=== PATIENT | male | born 1945 | race Caucasian/White ===

== ENCOUNTER 2017-04-17 11:24 | Outpatient (CLI) | payer MEDICARE, OTHER ==
[2017-04-17 18:54] LABS: HEMOGLOBIN A1C 0.97 g/dL
[2017-04-17 18:56] LABS: BUN - BLOOD UREA NITROGEN 14 mg/dL (6-20); CALCIUM 9.4 mg/dL (8.5-10.3); CARBON DIOXIDE - CO2 26 mmol/L (21-32); CHLORIDE 103 mmol/L (101-111); CHOL/HDL RATIO 4.1 (<5.0); CHOLESTEROL 202 mg/dL; GFR - MDRD 73 (>89); GLUCOSE 126 mg/dL (70-100); HDL CHOLESTEROL 49 mg/dL; LDL/HDL RATIO 2.8 (<3.6); SODIUM 138 mmol/L (135-145); TRIGLYCERIDES 89 mg/dL; VLDL CHOLESTEROL 18 mg/dL
== END 2017-04-17 11:25 | disposition home or self-care (01) ==
LOC: LAB.F 11:24
PROVIDERS: ATTEND Nurse Practitioner Family
DX: I10 Essential (primary) hypertension (principal); E11.9 Type 2 diabetes mellitus without complications; E78.5 Hyperlipidemia, unspecified; E03.9 Hypothyroidism, unspecified
CPT/HCPCS: 36415; 80048; 80061; 82043; 83036; 84443

== ENCOUNTER 2017-07-15 13:52 | Outpatient (CLI) | payer MEDICARE, OTHER ==
[2017-07-15 19:54] LABS: HEMOGLOBIN A1C 1.16 g/dL
== END 2017-07-15 13:53 | disposition home or self-care (01) ==
LOC: LAB.F 13:52
PROVIDERS: ATTEND Nurse Practitioner Family
DX: E78.5 Hyperlipidemia, unspecified (principal); E11.9 Type 2 diabetes mellitus without complications
CPT/HCPCS: 36415; 83036

== ENCOUNTER 2017-10-14 08:00 | Outpatient (CLI) | payer MEDICARE, OTHER ==
[2017-10-14 17:49] LABS: HB2 TOTAL 17.4 g/dL; HEMOGLOBIN A1C 0.95 g/dL; HEMOGLOBIN A1C % 7.1 % (4.6-6.2)
[2017-10-14 17:53] LABS: BUN - BLOOD UREA NITROGEN 11 mg/dL (6-20); CALCIUM 9.5 mg/dL (8.5-10.3); CARBON DIOXIDE - CO2 26 mmol/L (21-32); CHLORIDE 104 mmol/L (101-111); CHOL/HDL RATIO 2.1 (<5.0); CHOLESTEROL 94 mg/dL; CREATININE 0.9 mg/dL (0.6-1.2); GFR - MDRD 83 (>89); GLUCOSE 131 mg/dL (70-100); HDL CHOLESTEROL 45 mg/dL; LDL CHOLESTEROL,CALCULATED 32 mg/dL; LDL/HDL RATIO 0.7 (<3.6); SODIUM 137 mmol/L (135-145); VLDL CHOLESTEROL 17 mg/dL
== END 2017-10-14 08:01 | disposition home or self-care (01) ==
LOC: LAB.F 08:00
PROVIDERS: ATTEND Nurse Practitioner Family
DX: E11.9 Type 2 diabetes mellitus without complications (principal); E78.5 Hyperlipidemia, unspecified; I10 Essential (primary) hypertension
CPT/HCPCS: 36415; 80048; 80061; 83036

== ENCOUNTER 2018-01-20 10:41 | Outpatient (CLI) | payer MEDICARE, OTHER ==
[2018-01-20 18:35] LABS: BUN - BLOOD UREA NITROGEN 13 mg/dL (6-20); CALCIUM 9.2 mg/dL (8.5-10.3); CARBON DIOXIDE - CO2 25 mmol/L (21-32); CHLORIDE 103 mmol/L (101-111); CHOLESTEROL 195 mg/dL; CREATININE 0.8 mg/dL (0.6-1.2); GFR - MDRD 95 (>89); GLUCOSE 160 mg/dL (70-100); HDL CHOLESTEROL 39 mg/dL; LDL CHOLESTEROL,CALCULATED 119 mg/dL; LDL/HDL RATIO 3.1 (<3.6); SODIUM 136 mmol/L (135-145); VLDL CHOLESTEROL 37 mg/dL
[2018-01-20 19:23] LABS: HB2 TOTAL 16.7 g/dL; HEMOGLOBIN A1C 0.86 g/dL; HEMOGLOBIN A1C % 6.9 % (4.6-6.2)
== END 2018-01-20 10:42 | disposition home or self-care (01) ==
LOC: LAB.F 10:41
PROVIDERS: ATTEND Nurse Practitioner Family
DX: I10 Essential (primary) hypertension (principal); E11.9 Type 2 diabetes mellitus without complications; K76.0 Fatty (change of) liver, not elsewhere classified; E78.5 Hyperlipidemia, unspecified
CPT/HCPCS: 36415; 80048; 80061; 83036; 83721

== ENCOUNTER 2018-05-12 17:33 | Emergency (ER) | payer MEDICARE, OTHER ==
[2018-05-12 17:42] VITALS: BP 196/106
[2018-05-12] MEDS ORDERED: BUFFERED LIDOCAINE 10 ML SYRINGE ONE (17:43)
--- NOTE | 2018-05-12 17:44 | ED Physician Documentation ---
PD HPI HEENT - Stated complaint Stated Complaint: LT EAR PX - Chief complaint Chief Complaint: Heent - History obtained from History obtained from: Patient - History of Present Illness Timing - onset: Other (3 days of painful swelling just behind the left ear without fevers or chills.) Review of Systems Constitutional: denies: Fever, Chills Ears: reports: Ear pain. denies: Loss of hearing, Drainage/discharge Nose: denies: Rhinorrhea / runny nose, Congestion PD PAST MEDICAL HISTORY - Present Medications Home Medications: Ambulatory Orders Medication Instructions Recorded Confirmed Amox/Clav 875/125 [Augmentin] 1 each PO Q12H #14 tablet 05/12/18 - Allergies Allergies/Adverse Reactions: Allergies Allergy/AdvReac Type Severity Reaction Status Date / Time No Known Drug Allergies Allergy Verified 05/12/18 17:42 PD ED PE NORMAL - Vitals Vital signs reviewed: Yes - General General: Alert and oriented X 3, No acute distress - HEENT HEENT: Other (Just posterior to the inferior part of the left ear there is a pointed cyst or abscess with overlying cellulitis. It is about nickel sized.) - Neck Neck: Supple, no meningeal sign, No bony TTP - Neuro Neuro: Alert and oriented X 3, Normal speech - Psych Psych: Normal mood, Normal affect Results - Vitals Vitals: Vital Signs - 24 hr 05/12/18 17:35 Temperature 36.6 C Heart Rate 73 Respiratory 18 Rate Blood Pressure 196/106 H O2 Saturation 97 Oxygen O2 Source Room air Procedures - Abscess I&D (location) Left ear Preparation: Chlorhexadine, Lidocaine 1% Incision: Incised with scalpel, Purulent drainage (with sebum), Loculations broken, Culture obtained. No: Packed (too small) Other: Pt tolerated well, Dressing applied, Antibiotic prescribed PD MEDICAL DECISION MAKING - Sepsis Event Vital Signs: Vital Signs - 24 hr 05/12/18 17:35 Temperature 36.6 C Heart Rate 73 Respiratory 18 Rate Blood Pressure 196/106 H O2 Saturation 97 Oxygen O2 Source Room air Departure - Departure Disposition: 01 Home, Self Care Clinical Impression: Sebaceous cyst of ear Condition: Good Record reviewed to determine appropriate education?: Yes Instructions: ED Cyst Sebaceous Infec IandD Prescriptions: Amox/Clav 875/125 [Augmentin] 1 each PO Q12H #14 tablet Comments: We are performing a wound culture, the results should be done in 48-72 hours. If antibiotic change is necessary we will call you. Return if worse in the meantime, especially if you develop increased pain, fevers, cannot keep down the medication. Otherwise follow-up with your physician in approximately 2-3 days. Your blood pressure was elevated today on check into the emergency department. This does not mean that you have hypertension, it is a common phenomenon to come to the emergency department and have elevated blood pressure. I recommend that you see your primary care physician within the week to have it rechecked when you are feeling better. Discharge Date/Time: 05/12/18 18:10
[2018-05-12] MEDS ORDERED: AMOX/CLAV 875 MG/125 MG TABLET PO STA (18:03)
== END 2018-05-12 18:10 | disposition home or self-care (01) ==
LOC: ED 17:33
DX: L72.3 Sebaceous cyst (principal); R03.0 Elevated blood-pressure reading, without diagnosis of hypertension
CPT/HCPCS: 10060; 87070; 87205; 99283; A9270

== ENCOUNTER 2018-07-20 09:40 | Outpatient (CLI) | payer MEDICARE, OTHER ==
[2018-07-20 18:06] LABS: HB2 TOTAL 16.7 g/dL; HEMOGLOBIN A1C 0.94 g/dL; HEMOGLOBIN A1C % 7.3 % (4.6-6.2)
[2018-07-20 18:12] LABS: CHOL/HDL RATIO 4.3 (<5.0); CHOLESTEROL 206 mg/dL; HDL CHOLESTEROL 48 mg/dL; LDL CHOLESTEROL,CALCULATED 124 mg/dL; LDL/HDL RATIO 2.6 (<3.6); VLDL CHOLESTEROL 34 mg/dL
== END 2018-07-20 09:41 | disposition home or self-care (01) ==
LOC: LAB.F 09:40
PROVIDERS: ATTEND Internal Medicine
DX: E11.9 Type 2 diabetes mellitus without complications (principal)
CPT/HCPCS: 36415; 80061; 82043; 83036; 83721; 84443

== ENCOUNTER 2019-01-20 11:10 | Outpatient (CLI) | payer MEDICARE, OTHER ==
[2019-01-20 18:06] LABS: ALBUMIN 4.3 g/dL (3.2-5.5); ALBUMIN/GLOBULIN RATIO 1.3 (1.0-2.2); ALKALINE PHOSPHATASE 69 IU/L (42-121); ALT ALANINE AMINOTRANSFERASE 56 IU/L (10-60); AST ASPARTATE AMINOTRANSFERASE 55 IU/L (10-42); BILIRUBIN,TOTAL 0.9 mg/dL (0.2-1.0); BUN - BLOOD UREA NITROGEN 17 mg/dL (6-20); CALCIUM 9.6 mg/dL (8.5-10.3); CARBON DIOXIDE - CO2 26 mmol/L (21-32); CHLORIDE 102 mmol/L (101-111); CHOL/HDL RATIO 4.7 (<5.0); CHOLESTEROL 197 mg/dL; CREATININE 0.8 mg/dL (0.6-1.2); GFR - MDRD 94 (>89); GLUCOSE 164 mg/dL (70-100); HDL CHOLESTEROL 42 mg/dL; LDL CHOLESTEROL,CALCULATED 122 mg/dL; LDL/HDL RATIO 2.9 (<3.6); SODIUM 139 mmol/L (135-145); TOTAL PROTEIN 7.7 g/dL (6.7-8.2); VLDL CHOLESTEROL 33 mg/dL
[2019-01-20 18:25] LABS: HB2 TOTAL 16.1 g/dL; HEMOGLOBIN A1C 1.15 g/dL; HEMOGLOBIN A1C % 8.7 % (4.6-6.2)
[2019-01-20 19:06] LABS: CREATININE,URINE 108.5 mg/dL; MICROALBUM/CREATININE RATIO,UR 25.8 ug/mg (<30.0); MICROALBUMIN,URINE 2.8 mg/dL (0-300.0)
== END 2019-01-20 11:11 | disposition home or self-care (01) ==
LOC: LAB.F 11:10
PROVIDERS: ATTEND Internal Medicine
DX: E78.5 Hyperlipidemia, unspecified (principal); E11.9 Type 2 diabetes mellitus without complications; E03.9 Hypothyroidism, unspecified
CPT/HCPCS: 36415; 80053; 80061; 82043; 82570; 83036; 83721; 84443

== ENCOUNTER 2019-04-14 11:15 | Outpatient (CLI) | payer MEDICARE, OTHER ==
[2019-04-14 17:32] LABS: HB2 TOTAL 16.4 g/dL; HEMOGLOBIN A1C 1.01 g/dL; HEMOGLOBIN A1C % 7.8 % (4.6-6.2)
[2019-04-14 17:43] LABS: ALBUMIN 4.3 g/dL (3.2-5.5); ALBUMIN/GLOBULIN RATIO 1.3 (1.0-2.2); ALKALINE PHOSPHATASE 64 IU/L (42-121); ALT ALANINE AMINOTRANSFERASE 67 IU/L (10-60); AST ASPARTATE AMINOTRANSFERASE 57 IU/L (10-42); BILIRUBIN,TOTAL 0.9 mg/dL (0.2-1.0); BUN - BLOOD UREA NITROGEN 14 mg/dL (6-20); CALCIUM 9.5 mg/dL (8.5-10.3); CARBON DIOXIDE - CO2 24 mmol/L (21-32); CHLORIDE 104 mmol/L (101-111); CHOL/HDL RATIO 5.6 (<5.0); CHOLESTEROL 213 mg/dL; CREATININE 0.8 mg/dL (0.6-1.2); GFR - MDRD 94 (>89); GLUCOSE 148 mg/dL (70-100); HDL CHOLESTEROL 38 mg/dL; LDL CHOLESTEROL,CALCULATED 128 mg/dL; LDL/HDL RATIO 3.4 (<3.6); SODIUM 139 mmol/L (135-145); TOTAL PROTEIN 7.5 g/dL (6.7-8.2); VLDL CHOLESTEROL 47 mg/dL
[2019-04-14 17:48] LABS: CREATININE,URINE 264.3 mg/dL; MICROALBUM/CREATININE RATIO,UR 31.8 ug/mg (<30.0); MICROALBUMIN,URINE 8.4 mg/dL (0-300.0)
== END 2019-04-14 11:16 | disposition home or self-care (01) ==
LOC: LAB.S 11:15
PROVIDERS: ATTEND Internal Medicine
DX: E78.5 Hyperlipidemia, unspecified (principal); E11.9 Type 2 diabetes mellitus without complications
CPT/HCPCS: 36415; 80053; 80061; 82043; 82570; 83036; 83721

== ENCOUNTER 2019-11-04 06:05 | Day surgery (SDC) | payer MEDICARE, OTHER ==
[2019-11-04] MEDS ORDERED: MIDAZOLAM 2 MG/2 ML VIAL IVP ONE (06:06)
[2019-11-04] MEDS ORDERED: LACTATED RINGERS 500 ML IV ONE (06:16)
[2019-11-04] MEDS ORDERED: CYCLOPENTOLATE 1% OPHTH DROPS 2 ML ONE ×2 (06:21→06:22)
[2019-11-04] MEDS ORDERED: KETOROLAC 0.45% OPHTH DROPS ONE ×2 (06:21→06:22)
[2019-11-04] MEDS ORDERED: PROPARACAINE 0.5% OPHTH DROPS 15 ML ONE ×2 (06:21→06:22)
[2019-11-04] MEDS ORDERED: PHENYLEPHRINE 2.5% OPHTH 2 ML DROPS ONE ×3 (06:21→06:22)
[2019-11-04] MEDS ORDERED: CYCLOPENTOLATE 1% OPHTH DROPS 2 ML RIGHTEYE ONE (06:40)
[2019-11-04] MEDS ORDERED: KETOROLAC 0.45% OPHTH DROPS RIGHTEYE ONE (06:40)
[2019-11-04] MEDS ORDERED: PROPARACAINE 0.5% OPHTH DROPS 15 ML RIGHTEYE ONE ×2 (06:40→07:21)
[2019-11-04] MEDS ORDERED: PHENYLEPHRINE 2.5% OPHTH 2 ML DROPS RIGHTEYE ONE (06:41)
[2019-11-04] MEDS ORDERED: BRIMONIDINE 0.2% OPHTH DROPS 5 ML ONE (06:56)
[2019-11-04] MEDS ORDERED: TRIAMCIN/MOXIFLOX OPHTHALMIC 0.6 ML VIAL IO ONE ×2 (06:56→07:32)
[2019-11-04] MEDS ORDERED: TIMOLOL 0.5% OPHTH DROPS ONE (06:56)
[2019-11-04] MEDS ORDERED: BSS/LIDOCAINE/EPINEPHRINE 1 ML SYRINGE ONE (06:56)
[2019-11-04] MEDS ORDERED: VANCOMYCIN OPHTHALMI 8MG/0.8ML 8 MG/0.8 ML SYRINGE IO ONE ×2 (06:57→07:33)
--- NOTE | 2019-11-04 07:10 | ANESTHESIA ---
Pre-Anesthesia VS, & Labs - Diagnosis right eye nuclear sclerotic cataract - Procedure cataract extraction with probable intraocular lens implant right eye Vital Signs: Temp Pulse Resp BP Pulse Ox 37.2 C 70 16 160/74 H 96 11/04/19 06:23 11/04/19 06:23 11/04/19 06:23 11/04/19 06:23 11/04/19 06:23 Height 5 ft 10 in Weight (kg) 96 kg Body Mass Index 30.4 - NPO >8 hours - Lab Results Current Lab Results: Laboratory Tests 11/04/19 06:36: POC Whole Bld Glucose 169 H Home Medications and Allergies Home Medications: Ambulatory Orders amLODIPine [Norvasc] 5 mg PO ONCE 11/03/19 diphenhydrAMINE [Benadryl] 25 mg PO PRN PRN 11/03/19 lisinopriL [Lisinopril] 20 mg PO DAILY 11/03/19 metFORMIN [Glucophage] 500 mg PO BID 11/03/19 amLODIPine [Norvasc] 5 mg PO ONCE 11/03/19 diphenhydrAMINE [Benadryl] 25 mg PO PRN PRN 11/03/19 lisinopriL [Lisinopril] 20 mg PO DAILY 11/03/19 metFORMIN [Glucophage] 500 mg PO BID 11/03/19 Allergies/Adverse Reactions: Allergies Allergy/AdvReac Type Severity Reaction Status Date / Time No Known Drug Allergies Allergy Verified 05/12/18 17:42 Anes History & Medical History - Anesthetic History Anesthesia Complications: reports: No previous complications - Medical History Cardiovascular: reports: Hypertension Pulmonary: reports: None Gastrointestinal: reports: None Urinary: reports: None Neuro: reports: None Musculoskeletal: reports: None Endocrine/Autoimmune: reports: Other ("pre-diabetic") Blood Disorders: reports: None Skin: reports: None Smoking Status: Former smoker (quit 20 years ago) Psychosocial: reports: No issues indicated - Surgical History Orthopedic: Hip replacement Exam General: Alert, Oriented x3, Cooperative, No acute distress Dental: WNL Mouth Openin Fingerbreadth Neck Mobility: Normal Mallampati classification: III Thyromental Distance: greater than 6 cm Respiratory: Lungs clear, Normal breath sounds, No respiratory distress, No accessory muscle use Cardiovascular: Regular rate, Normal S1, Normal S2, No murmurs Mental/Cognitive Status: Alert/Oriented X3, Normal for patient Plan Anesthesia Type: MAC Consent for Procedure(s) Verified and Reviewed: Yes Code Status: Attempt Resuscitation ASA classification: 2-Mild systemic disease Is this case an emergency?: No
[2019-11-04] MEDS ORDERED: BRIMONIDINE 0.2% OPHTH DROPS 5 ML OPTH ONE (07:30)
[2019-11-04] MEDS ORDERED: EPINEPHrine 1 MG/ML AMP IVP ONE (07:30)
[2019-11-04] MEDS ORDERED: TIMOLOL 0.5% OPHTH DROPS OPTH ONE (07:31)
[2019-11-04] MEDS ORDERED: BSS/LIDOCAINE/EPINEPHRINE 1 ML SYRINGE IO ONE (07:31)
[2019-11-04] MEDS ORDERED: CHONDR SULF/HYALURONATE SYRINGE IO ONE (07:31)
[2019-11-04 07:46] VITALS: BP 126/58
--- NOTE | 2019-11-04 07:58 | OPERATIVE REPORT ---
DATE OF SERVICE: 11/04/2019 Physician: Jacob Lazo MD PREOPERATIVE DIAGNOSIS: Visually significant cataract, right eye. This was his first cataract surge ry. POSTOPERATIVE DIAGNOSIS: Visually significant cataract, right eye. This was his first cataract surg deidra. DESCRIPTION OF PROCEDURE: Phacoemulsification with posterior chamber intraocular lens implant, right eye. SURGEON: Jacob Lazo MD ANESTHESIA: Monitored anesthesia care. COMPLICATIONS: None. OPERATIVE INDICATIONS: This is a 74-year-old man with progressive vision loss in the right eye due t o 2-3+ nuclear sclerotic cataract. Best corrected visual acuity was 20/40, with glare to 20/50 in th e right eye. Indications for surgery are overall decrease in vision, difficulty seeing words or clos ed caption or game scores on TV, difficulty driving at night because of headlights from other vehicle s, and difficulty with glare or bright lights in any situation. He was consented at length concernin g risks and benefits of cataract surgery, after which he expressed a desire to proceed with surgery. OPERATIVE PROCEDURE: Patient was taken to OR #3 and placed under monitored anesthesia care. Surgica l timeout was conducted confirming correct patient, correct procedure, and correct surgical site. He was given topical anesthesia, and prepped and draped in the usual sterile fashion. The eye was ente red at the 12 and 9 o'clock positions. Intracameral Shugarcaine was injected into the anterior chamb er, followed by Viscoat. A continuous-tear curvilinear capsulorrhexis was performed. The nucleus wa s hydrodissected and phacoemulsified. The cortex was evacuated using automated infusion and aspirati on. Provisc was injected in the capsular bag, and a 22.0 diopter intraocular lens inserted in the ba g. I and A was used to evacuate the viscoelastic materials. The eye was inflated to physiologic pre ssure using balanced salt solution and found to be watertight. Approximately 0.25 mL of a mixture of triamcinolone, moxifloxacin was injected transsclerally into the vitreous in the inferotemporal quad rant. An additional 0.55 mL of a mixture of triamcinolone, moxifloxacin and vancomycin was injected subconjunctivally in the superior quadrant for infection and inflammation prophylaxis. Wound integri ty was checked with Weck-Tricia sponges. Patient was taken from the operating room in good condition an d given postoperative instructions. TD: 11/04/2019 07:52
== END 2019-11-04 06:06 | disposition home or self-care (01) ==
LOC: SDS 06:05
PROVIDERS: ATTEND Ophthalmology
PROC: 08RJ3JZ Replacement of Right Lens with Synthetic Substitute, Percutaneous Approach (ICD-10-PCS; principal; 2019-11-04 07:30)
DX: E11.36 Type 2 diabetes mellitus with diabetic cataract (principal); H25.11 Age-related nuclear cataract, right eye; I10 Essential (primary) hypertension; Z87.891 Personal history of nicotine dependence; Z79.84 Long term (current) use of oral hypoglycemic drugs
CPT/HCPCS: 66984; A9270; J3490; V2632

== ENCOUNTER 2020-05-18 11:40 | Outpatient (CLI) | payer MEDICARE, OTHER | END 2020-05-18 23:59 | disposition home or self-care (01) | LOC: COV 11:40 | PROVIDERS: ATTEND Family Medicine | DX: R50.9 Fever, unspecified (principal); M79.10 Myalgia, unspecified site; R53.83 Other fatigue; R09.81 Nasal congestion; R11.2 Nausea with vomiting, unspecified; Z20.828 Contact with and (suspected) exposure to other viral communicable diseases ==

== ENCOUNTER 2020-05-24 07:00 | Outpatient (CLI) | payer MEDICARE, OTHER | END 2020-05-24 23:59 | disposition home or self-care (01) | LOC: LAB.R 07:00 | PROVIDERS: ATTEND Physician Assistant Medical | DX: R50.9 Fever, unspecified (principal); R35.0 Frequency of micturition | CPT/HCPCS: 87086 ==

== ENCOUNTER 2020-05-24 08:00 | Outpatient (CLI) | payer MEDICARE, OTHER ==
--- NOTE | 2020-05-24 18:28 | XRAY Report ---
PROCEDURE: Chest 2 View X-Ray INDICATIONS: FEVER WITH CHILLS TECHNIQUE: 2 view(s) of the chest. COMPARISON: None. FINDINGS: Surgical changes and devices: None. Lungs and pleura: No pleural effusions or pneumothorax. Lungs are clear. Mediastinum: Mediastinal contours are normal. Heart size is normal. Bones and chest wall: No suspicious bony abnormalities. Soft tissues appear unremarkable. IMPRESSION: No acute process. Reviewed by: Roxane Mendez MD on 05/24/2020 6:27 PM PDT Approved by: Roxane Mendez MD on 05/24/2020 6:27 PM PDT Station ID: [id number]
== END 2020-05-24 23:59 | disposition home or self-care (01) ==
LOC: DI.S 08:00
PROVIDERS: ATTEND Physician Assistant Medical
DX: R50.9 Fever, unspecified (principal); R35.0 Frequency of micturition; E11.9 Type 2 diabetes mellitus without complications; I10 Essential (primary) hypertension
CPT/HCPCS: 36415; 71046; 80053; 83036; 85025; 87086

== ENCOUNTER 2020-05-24 08:00 | Outpatient (CLI) | payer MEDICARE, OTHER ==
[2020-05-24 19:57] LABS: BASOPHILS # (AUTO) 0.1 10^3/uL (0.0-0.1); BASOPHILS % (AUTO) 0.6 %; EOSINOPHILS # (AUTO) 0.3 10^3/uL (0.0-0.7); EOSINOPHILS % (AUTO) 3.4 %; HGB - HEMOGLOBIN 14.5 g/dL (14.0-18.0); LYMPHOCYTES # (AUTO) 1.7 10^3/uL (1.5-3.5); LYMPHOCYTES % (AUTO) 17.5 %; MEAN CORPUSCULAR HGB CONC 33.7 g/dL (32.0-36.0); MEAN PLATELET VOLUME 9.3 fL (7.4-11.4); MONOCYTES # (AUTO) 0.5 10^3/uL (0.0-1.0); MONOCYTES % (AUTO) 5.6 %; NEUTROPHILS # (AUTO) 6.9 10^3/uL (1.5-6.6); NEUTROPHILS % (AUTO) 72.1 %; PLT - PLATELET COUNT 551 10^3/uL (130-450); WHITE BLOOD COUNT 9.5 x10^3/uL (4.8-10.8)
[2020-05-24 20:08] LABS: HEMOGLOBIN A1c% 6.9 % (4.27-6.07)
[2020-05-24 20:13] LABS: ALBUMIN 3.8 g/dL (3.2-5.5); BILIRUBIN,TOTAL 0.6 mg/dL (0.2-1.0); CALCIUM 9.4 mg/dL (8.5-10.3); CREATININE 0.7 mg/dL (0.6-1.2); TOTAL PROTEIN 7.7 g/dL (6.7-8.2)
== END 2020-05-24 23:59 | disposition home or self-care (01) ==
LOC: LAB.S 08:00
PROVIDERS: ATTEND Physician Assistant Medical
DX: E11.9 Type 2 diabetes mellitus without complications (principal); R50.9 Fever, unspecified; I10 Essential (primary) hypertension
CPT/HCPCS: 36415; 80053; 83036; 85025

== ENCOUNTER 2020-11-10 19:32 | Emergency (ER) | payer MEDICARE, OTHER ==
--- NOTE | 2020-11-10 21:00 | ED Physician Documentation ---
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 The blade took a slice had of the distal tip. He had difficulty getting the bleeding to stop at home therefore he comes to the emergency department. Reports tetanus is up-to-date. He is right-hand dominant. Review of Systems Constitutional: reports: Reviewed and negative Eyes: reports: Reviewed and negative Ears: reports: Reviewed and negative Nose: reports: Reviewed and negative Throat: reports: Reviewed and negative Cardiac: reports: Reviewed and negative Respiratory: reports: Reviewed and negative GI: reports: Reviewed and negative : reports: Reviewed and negative Skin: reports: Lesions (right finger tip) PD PAST MEDICAL HISTORY - Past Medical History Past Medical History: Yes Cardiovascular: Hypertension Respiratory: None Neuro: None Endocrine/Autoimmune: Other GI: None : None HEENT: None Psych: None Musculoskeletal: None Derm: None - Past Surgical History Past Surgical History: Yes Ortho: Hip replacement, Carpal Tunnel surgery - Present Medications Home Medications: Ambulatory Orders Medication Instructions Recorded Confirmed amLODIPine [Norvasc] 10 mg PO ONCE 11/03/19 11/10/20 diphenhydrAMINE [Benadryl] 25 mg PO PRN PRN 11/03/19 11/10/20 lisinopriL [Lisinopril] 20 mg PO DAILY 11/03/19 11/10/20 metFORMIN [Glucophage] 500 mg PO BID 11/03/19 11/10/20 - Allergies Allergies/Adverse Reactions: Allergies Allergy/AdvReac Type Severity Reaction Status Date / Time No Known Drug Allergies Allergy Verified 05/12/18 17:42 - Social History Does the pt smoke?: No Smoking Status: Never smoker Does the pt drink ETOH?: No Does the pt have substance abuse?: No Substance Use and Type: Marijuana - Immunizations Immunizations are current?: Yes - POLST Patient has POLST: No PD ED PE EXPANDED - Extremities Extremities: Right finger(s) (0.25 x 0.3 cm skin defect distal tip of the right finger where epidermis is exposed. Not amenable to primary closure. 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 Not amenable to primary closure with sutures. He had a difficult time getting the capillary bleeding to stop at home therefore he comes to the emergency department. Defect was thoroughly cleansed with warm soap and water and Surgicel foam was applied to the bed with prompt resolution of the bleeding. Simple bandage was then placed. Patient is advised to remove the dressing in 24 hours. Discussed that tissue defects like this typically take 10 days to 2 weeks to heal. Tetanus is up-to-date. Emergent return precautions for concerns of infection discussed Departure - Departure Disposition: 01 Home, Self Care Clinical Impression: Skin avulsion Condition: Stable Record reviewed to determine appropriate education?: Yes Comments: All of her the skin avulsion on the tip of your finger will simply have to heal slowly with time. The dressing I placed on the tip of your finger should cause it to clot. In 24 hours you can gently remove the dressing and apply any antibiotic ointment and a simple bandage. Defects like this typically take 10 days to 2 weeks to heal. Return to the emergency department if you have fevers, redness milky drainage or concerns of infection.
[2020-11-10 21:12] VITALS: BP 155/73
== END 2020-11-10 21:16 | disposition home or self-care (01) ==
LOC: ED 19:32
DX: S61.210A Laceration without foreign body of right index finger without damage to nail, initial encounter (principal); W26.8XXA Contact with other sharp object(s), not elsewhere classified, initial encounter; Y93.G1 Activity, food preparation and clean up; I10 Essential (primary) hypertension
CPT/HCPCS: 99281

== ENCOUNTER 2020-12-25 12:52 | Outpatient (CLI) | payer MEDICARE, OTHER ==
[2020-12-25 20:10] LABS: BUN - BLOOD UREA NITROGEN 21 mg/dL (6-20); CALCIUM 9.6 mg/dL (8.5-10.3); CARBON DIOXIDE - CO2 23 mmol/L (21-32); CHLORIDE 102 mmol/L (101-111); CHOL/HDL RATIO 5.2 (<5.0); CHOLESTEROL 209 mg/dL; CREATININE 0.7 mg/dL (0.6-1.2); GFR - MDRD 110 (>89); GLUCOSE 133 mg/dL (70-100); HDL CHOLESTEROL 40 mg/dL; LDL CHOLESTEROL,CALCULATED 122 mg/dL; LDL/HDL RATIO 3.1 (<3.6); SODIUM 137 mmol/L (135-145); TRIGLYCERIDES 234 mg/dL; VLDL CHOLESTEROL 47 mg/dL
[2020-12-25 20:24] LABS: CREATININE,URINE 214.9 mg/dL; MICROALBUM/CREATININE RATIO,UR 36.8 ug/mg (<30.0); MICROALBUMIN,URINE 7.9 mg/dL (0-300.0)
[2020-12-25 20:41] LABS: ESTIMATED AVERAGE GLUCOSE 160 mg/dL (70-100); HEMOGLOBIN A1c% 7.2 % (4.27-6.07)
== END 2020-12-25 12:53 | disposition home or self-care (01) ==
LOC: LAB.S 12:52
PROVIDERS: ATTEND Physician Assistant
DX: E78.5 Hyperlipidemia, unspecified (principal); E11.9 Type 2 diabetes mellitus without complications; I10 Essential (primary) hypertension; Z12.5 Encounter for screening for malignant neoplasm of prostate
CPT/HCPCS: 36415; 80048; 80061; 82043; 82570; 83036; G0103; 83721; 84153

== ENCOUNTER 2021-03-28 12:21 | Outpatient (CLI) | payer MEDICARE, OTHER ==
[2021-03-28 20:52] LABS: ESTIMATED AVERAGE GLUCOSE 174 mg/dL (70-100); HEMOGLOBIN A1c% 7.7 % (4.27-6.07)
== END 2021-03-28 12:22 | disposition home or self-care (01) ==
LOC: LAB.S 12:21
PROVIDERS: ATTEND Physician Assistant
DX: E11.9 Type 2 diabetes mellitus without complications (principal)
CPT/HCPCS: 36415; 83036

== ENCOUNTER 2021-07-18 13:54 | Outpatient (CLI) | payer MEDICARE, OTHER ==
[2021-07-18 20:06] LABS: CALCIUM 9.5 mg/dL (8.5-10.3); CREATININE 0.8 mg/dL (0.6-1.2); POTASSIUM 4.2 mmol/L (3.5-5.0)
[2021-07-18 20:09] LABS: CREATININE,URINE 65.4 mg/dL; MICROALBUM/CREATININE RATIO,UR 33.6 ug/mg (<30.0); MICROALBUMIN,URINE 2.2 mg/dL (0-300.0)
[2021-07-18 20:54] LABS: ESTIMATED AVERAGE GLUCOSE 220 mg/dL (70-100); HEMOGLOBIN A1c% 9.3 % (4.27-6.07)
== END 2021-07-18 13:55 | disposition home or self-care (01) ==
LOC: LAB.S 13:54
PROVIDERS: ATTEND Internal Medicine
DX: E11.9 Type 2 diabetes mellitus without complications (principal); I10 Essential (primary) hypertension
CPT/HCPCS: 36415; 80048; 82043; 82570; 83036

== ENCOUNTER 2021-07-26 08:00 | Outpatient (CLI) | payer MEDICARE, OTHER ==
[2021-07-26 20:18] LABS: ESTIMATED AVERAGE GLUCOSE 223 mg/dL (70-100); HEMOGLOBIN A1c% 9.4 % (4.27-6.07)
[2021-07-26 20:26] LABS: CALCIUM 9.8 mg/dL (8.5-10.3); CREATININE 0.8 mg/dL (0.6-1.2)
== END 2021-07-26 23:59 | disposition home or self-care (01) ==
LOC: LAB.S 08:00
PROVIDERS: ATTEND Emergency Medicine
DX: E11.9 Type 2 diabetes mellitus without complications (principal)
CPT/HCPCS: 36415; 80048; 83036

== ENCOUNTER 2021-11-14 06:19 | Day surgery (SDC) | payer MEDICARE ==
[2021-11-14] MEDS ORDERED: LACTATED RINGERS 1,000 ML IV ONE (06:40)
--- NOTE | 2021-11-14 07:24 | ANESTHESIA ---
Pre-Anesthesia VS, & Labs - Diagnosis history of polyps - Procedure colonoscopy Vital Signs: Temp Pulse Resp BP Pulse Ox 36.6 C 87 16 161/83 H 96 11/14/21 06:30 11/14/21 06:30 11/14/21 06:30 11/14/21 06:30 11/14/21 06:30 Height: 5 ft 11 in Weight (kg): 98.2 kg Body Mass Index: 30.2 BMI Classification: Obese - NPO >8 hours - Lab Results Current Lab Results: Laboratory Tests 11/14/21 06:58: POC Whole Bld Glucose 216 H Home Medications and Allergies Home Medications: Ambulatory Orders Losartan/Hydrochlorothiazide [Losartan-Hctz 100-12.5 mg Tab] 1 each PO DAILY 11/13/21 amLODIPine [Norvasc] 10 mg PO ONCE 11/03/19 diphenhydrAMINE [Benadryl] 25 mg PO PRN PRN 11/03/19 metFORMIN [Glucophage] 500 mg PO BID 11/03/19 Losartan/Hydrochlorothiazide [Losartan-Hctz 100-12.5 mg Tab] 1 each PO DAILY 11/13/21 Allergies/Adverse Reactions: Allergies Allergy/AdvReac Type Severity Reaction Status Date / Time No Known Drug Allergies Allergy Verified 11/14/21 06:48 Anes History & Medical History - Anesthetic History Anesthesia Complications: reports: No previous complications - Medical History Cardiovascular: reports: Hypertension Pulmonary: reports: None Gastrointestinal: reports: None Urinary: reports: None Neuro: reports: None Musculoskeletal: reports: None Endocrine/Autoimmune: reports: Other Blood Disorders: reports: None Skin: reports: None Smoking Status: Never smoker History of Cancer?: No - Surgical History Orthopedic: reports: Hip replacement, Carpal Tunnel surgery Exam General: Alert, Oriented x3 Dental: WNL Mouth Opening: Greater than 4 Fingerbreadths Mallampati classification: II Thyromental Distance: less than 4 cm Respiratory: Lungs clear Cardiovascular: Regular rate Plan Anesthesia Type: Total IV Consent for Procedure(s) Verified and Reviewed: Yes Code Status: Attempt Resuscitation ASA classification: 3-Severe systemic disease Is this case an emergency?: No
[2021-11-14] MEDS ORDERED: PROPOFOL 500 MG/50 ML 500 MG/50 ML VIAL ONE (07:37)
[2021-11-14] MEDS ORDERED: LACTATED RINGERS 200 ML IV ONE (08:21)
[2021-11-14 08:43] VITALS: BP 131/69
--- NOTE | 2021-11-14 09:14 | ANESTHESIA POST OP EVALUATION ---
Anesthesia Post Eval - Post Anesthesia Eval Vitals: Last Vital Signs Temp 36.5 C 11/14/21 08:42 Pulse 86 11/14/21 08:42 Resp 20 11/14/21 08:42 BP 131/69 H 11/14/21 08:42 Pulse Ox 98 11/14/21 08:42 CV Function Including HR & BP: Stable Pain Control: Satisfactory Nausea & Vomiting: Negative Mental Status: Baseline Respiratory Status: Airway Patent Hydration Status: Satisfactory Anesthesia Complications: None
== END 2021-11-14 06:20 | disposition home or self-care (01) ==
LOC: SDS 06:19
PROVIDERS: ATTEND Surgery
DX: R19.5 Other fecal abnormalities (principal); K64.8 Other hemorrhoids; K57.30 Diverticulosis of large intestine without perforation or abscess without bleeding; E66.9 Obesity, unspecified; Z68.30 Body mass index [BMI] 30.0-30.9, adult; E11.9 Type 2 diabetes mellitus without complications; Z87.891 Personal history of nicotine dependence; Z79.84 Long term (current) use of oral hypoglycemic drugs; Z86.010 Personal history of colon polyps
CPT/HCPCS: 45378; J7120

== ENCOUNTER 2022-03-19 13:07 | Outpatient (CLI) | payer MEDICARE ==
[2022-03-19 20:17] LABS: CHOL/HDL RATIO 3.2 (<5.0); CHOLESTEROL 158 mg/dL; HDL CHOLESTEROL 50 mg/dL; LDL CHOLESTEROL,CALCULATED 87 mg/dL; LDL/HDL RATIO 1.7 (<3.6); TRIGLYCERIDES 105 mg/dL; VLDL CHOLESTEROL 21 mg/dL
[2022-03-19 20:23] LABS: ESTIMATED AVERAGE GLUCOSE 226 mg/dL (70-100); HEMOGLOBIN A1c% 9.5 % (4.27-6.07)
== END 2022-03-19 13:08 | disposition home or self-care (01) ==
LOC: LAB.S 13:07
PROVIDERS: ATTEND Nurse Practitioner Family
DX: E11.9 Type 2 diabetes mellitus without complications (principal); E78.5 Hyperlipidemia, unspecified
CPT/HCPCS: 36415; 80061; 83036; 83721

== ENCOUNTER 2022-05-28 11:10 | Outpatient (CLI) | payer MEDICARE ==
--- NOTE | 2022-05-28 13:56 | XRAY Report ---
PROCEDURE: Ribs 3 View BILAT INDICATIONS: PLEURODYNIA TECHNIQUE: 2 views of the left ribs were acquired. COMPARISON: Chest x-ray performed today FINDINGS: Surgical changes and devices: None. Bones and chest wall: No fractures or dislocations. No suspicious bony lesions. Overlying soft tis sues appear unremarkable. Lungs and pleura: The visualized lung appears clear. No pleural effusions or pneumothorax are visib le. IMPRESSION: No rib fracture. No pneumothorax identified. Reviewed by: Ranjit Massey on 05/28/2022 1:54 PM PDT Approved by: Ranjit Massey on 05/28/2022 1:54 PM PDT Station ID: [id number]
--- NOTE | 2022-05-29 08:35 | XRAY Report ---
PROCEDURE: Chest 2 View X-Ray INDICATIONS: RIB PAIN TECHNIQUE: 2 view(s) of the chest. COMPARISON: 05/24/2020 FINDINGS: Surgical changes and devices: None. Lungs and pleura: No pleural effusions or pneumothorax. Lungs are clear. Mediastinum: Mediastinal contours are normal. Heart size is normal. Bones and chest wall: No suspicious bony abnormalities. Soft tissues appear unremarkable. IMPRESSION: No acute finding. Reviewed by: Jean Pierre Alvarado MD on 05/29/2022 8:34 AM PDT Approved by: Jean Pierre Alvarado MD on 05/29/2022 8:34 AM PDT Station ID: [id number]
== END 2022-05-28 11:11 | disposition home or self-care (01) ==
LOC: DI.S 11:10
PROVIDERS: ATTEND Nurse Practitioner Family
DX: R07.81 Pleurodynia (principal)

== ENCOUNTER 2022-10-31 06:48 | Day surgery (SDC) | payer MEDICARE ==
[~2022-10-31 06:48] MED LIST: CYCLOPENTOLATE 1% OPHTH DROPS 2 ML ONE; KETOROLAC 0.45% OPHTH DROPS ONE; PHENYLEPHRINE 2.5% OPHTH 2 ML DROPS ONE; PROPARACAINE 0.5% OPHTH DROPS 15 ML ONE
[2022-10-31] MEDS ORDERED: LACTATED RINGERS 1,000 ML IV ONE (07:33)
--- NOTE | 2022-10-31 07:38 | ANESTHESIA ---
Pre-Anesthesia VS, & Labs - Diagnosis left nuclear cataract - Procedure left cataract extraction with IOL Vital Signs: Temp Pulse Resp BP Pulse Ox O2 Flow Rate 36.7 C 100 16 167/72 H 100 10/31/22 07:18 10/31/22 07:18 10/31/22 07:18 10/31/22 07:18 10/31/22 07:18 Height: 5 ft 11 in Weight (kg): 95.8 kg Body Mass Index: 29.4 BMI Classification: Overweight - NPO >8 hours - Lab Results Current Lab Results: Laboratory Tests 10/31/22 07:28: POC Whole Bld Glucose 212 H Home Medications and Allergies Home Medications: Ambulatory Orders Empagliflozin [Jardiance] 25 mg ORAL DAILY 10/31/22 Losartan/Hydrochlorothiazide [Losartan-Hctz 100-12.5 mg Tab] 1 each PO DAILY 11/13/21 Empagliflozin [Jardiance] 25 mg ORAL DAILY 10/31/22 Allergies/Adverse Reactions: Allergies Allergy/AdvReac Type Severity Reaction Status Date / Time No Known Drug Allergies Allergy Verified 11/14/21 06:48 Anes History & Medical History - Medical History Cardiovascular: reports: Hypertension Pulmonary: reports: None Gastrointestinal: reports: None Urinary: reports: None Neuro: reports: None Musculoskeletal: reports: None Endocrine/Autoimmune: reports: Other Blood Disorders: reports: None Skin: reports: None Smoking Status: Never smoker - Surgical History Orthopedic: reports: Hip replacement, Carpal Tunnel surgery Exam General: Alert Dental: WNL Mouth Opening: Greater than 4 Fingerbreadths Neck Mobility: Normal Mallampati classification: I Thyromental Distance: greater than 6 cm Respiratory: Lungs clear Cardiovascular: Regular rate Plan Anesthesia Type: MAC Consent for Procedure(s) Verified and Reviewed: Yes Code Status: Attempt Resuscitation ASA classification: 2-Mild systemic disease Is this case an emergency?: No
[2022-10-31] MEDS ORDERED: MIDAZOLAM 2 MG/2 ML VIAL ONE (07:40)
[2022-10-31] MEDS ORDERED: TIMOLOL 0.5% OPHTH DROPS ONE (07:41)
[2022-10-31] MEDS ORDERED: EPINEPHrine 1 MG/ML AMP ONE (07:41)
[2022-10-31] MEDS ORDERED: TRIAMCIN/MOXIFLOX OPHTHALMIC 0.6 ML VIAL IO ONE ×2 (07:41→08:15)
[2022-10-31] MEDS ORDERED: BRIMONIDINE 0.2% OPHTH DROPS 5 ML ONE (07:41)
[2022-10-31] MEDS ORDERED: VANCOMYCIN OPHTH (TOPICAL) 10 MG/ML SYRINGE ONE (07:42)
[2022-10-31] MEDS ORDERED: BSS/LIDOCAINE/EPINEPHRINE 1 ML SYRINGE ONE (07:42)
[2022-10-31] MEDS ORDERED: BRIMONIDINE 0.2% OPHTH DROPS 5 ML OPTH ONE (08:14)
[2022-10-31] MEDS ORDERED: VANCOMYCIN OPHTH (TOPICAL) 10 MG/ML SYRINGE TOP ONE (08:15)
[2022-10-31] MEDS ORDERED: PROPARACAINE 0.5% OPHTH DROPS 15 ML EACHEYE ONE (08:15)
[2022-10-31] MEDS ORDERED: TIMOLOL 0.5% OPHTH DROPS OPTH ONE (08:15)
[2022-10-31] MEDS ORDERED: BSS/LIDOCAINE/EPINEPHRINE 1 ML SYRINGE IO ONE (08:15)
[2022-10-31] MEDS ORDERED: EPINEPHrine 1 MG/ML AMP IR ONE (08:15)
--- NOTE | 2022-10-31 08:36 | OPERATIVE REPORT ---
Operative Report - Other Other Information/Narrative: Date of Surgery: 10/31/22 Preop Dx: Visually significant cataract left eye. Cataract surgery was performed in the right eye on . Postop Dx: Same Procedure: Phacoemulsification with posterior chamber intraocular lens implant left eye Surgeon: Dr. Jacob Lazo Anesthesia: Monitored anesthesia care Complications: None Operative Indications: This is a 77-year-old M with progressive vision loss in the left eye due to 3-4+ nuclear and vacuolar cataract. Best corrected visual acuity was 20/25 with glare to 20/200 vision in the left eye. Indications for surgery were: - Overall decrease in vision - Difficulty reading - Difficulty with glare or bright lights in any situation The patient was consented at length concerning the risks and benefits of cataract surgery after which the patient expressed a desire to proceed with surgery. Operative Procedure: The patient was taken into OR#3 and placed under monitored anesthesia care. A surgical time-out was conducted confirming correct patient, correct procedure, and correct surgical site. The patient was given topical anesthesia and then prepped and draped in the usual sterile fashion. The eye was entered at the 6 and 3 oclock positions. Intracameral Shugarcaine was injected into the anterior chamber followed by a dispersive viscoelastic. A continuous-tear curvilinear capsulorhexis was performed. The nucleus was hydrodissected and phacoemulsified. The cortex was evacuated using automated infusion and aspiration. A cohesive viscoelastic was injected into the capsular bag and a 23.0 diopter intraocular lens was inserted into the bag. Infusion and aspiration were used to evacuate the viscoelastic materials from the eye. The wounds were hydrated and the eye inflated to physiologic pressure using balanced salt solution. Approximately 0.25ml of a mixture of triamcinolone and moxifloxacin was injected trans-sclerally into the vitreous in the inferotemporal quadrant using a 30 gauge cannula. An additional 0.55ml of a mixture of triamcinolone and moxifloxacin was injected subconjunctivally in the superior quadrant for infection and inflammation prophylaxis. Wound integrity was checked with Weck-Tricia sponges. The patient was taken from the operating room in good condition and given post-op instructions.
[2022-10-31 08:41] VITALS: BP 148/68
--- NOTE | 2022-10-31 10:30 | ANESTHESIA POST OP EVALUATION ---
Anesthesia Post Eval - Post Anesthesia Eval Vitals: Last Vital Signs Temp 36.5 C 10/31/22 08:40 Pulse 81 10/31/22 08:40 Resp 16 10/31/22 08:40 BP 148/68 H 10/31/22 08:40 Pulse Ox 97 10/31/22 08:40 O2 Flow Rate CV Function Including HR & BP: Stable Pain Control: Satisfactory Nausea & Vomiting: Negative Mental Status: Baseline Respiratory Status: Airway Patent Hydration Status: Satisfactory Anesthesia Complications: None
== END 2022-10-31 06:49 | disposition home or self-care (01) ==
LOC: SDS 06:48
PROVIDERS: ATTEND Ophthalmology
DX: E11.36 Type 2 diabetes mellitus with diabetic cataract (principal); H25.12 Age-related nuclear cataract, left eye; E11.51 Type 2 diabetes mellitus with diabetic peripheral angiopathy without gangrene; Z79.84 Long term (current) use of oral hypoglycemic drugs; Z98.41 Cataract extraction status, right eye
CPT/HCPCS: 66984; A9270; J3490; J7120